=== PATIENT | female | born 1945 | race Caucasian/White ===

== ENCOUNTER 2019-03-26 09:29 | Emergency (ER) | payer MEDICARE, OTHER ==
[~2019-03-26] VITALS: Ht 162.6 cm; Wt 68.0 kg
[2019-03-26] MEDS ORDERED: BUSPIRONE5 MG PO (10:06)
[2019-03-26] MEDS ORDERED: DICYCLOMINE10 MG PO (10:06)
[2019-03-26 10:07] LABS: HEMATOCRIT 39.5 % (37.0-47.0); HEMOGLOBIN 12.9 g/dl (12.0-16.0); IMMATURE GRANULOCYTES 0.6 % (0.0-5.0); MEAN CELL VOLUME 98.5 fL CALC (80.0-100.0); MEAN CORPUSCULAR HGB 32.2 pG CALC (26.0-32.0); MEAN CORPUSCULAR HGB CONC 32.7 g/L CALC (32.0-36.0); NEUT# 2.3 thou/uL (2.00-7.15); RED BLOOD COUNT 4.01 mill/uL (4.20-5.60); RED CELL DISTRI WIDTH 13.1 % (11.5-15.5)
[2019-03-26] MEDS ORDERED: MAGNESIUM250 M1 PO (10:07)
[2019-03-26] MEDS ORDERED: PROBIOTI2 (10:07)
[2019-03-26] MEDS ORDERED: VIT B-COMPLX100 MG PO (10:08)
[2019-03-26] MEDS ORDERED: VITAMIN D PO (10:08)
[2019-03-26] MEDS ORDERED: L-THEANINE100 MG PO (10:08)
[2019-03-26] MEDS ORDERED: FISH OIL1000 MG PO (10:09)
[2019-03-26] MEDS ORDERED: ZINC50 M1 PO (10:09)
[2019-03-26] MEDS ORDERED: GAS RELIEF125 M2 PO (10:10)
[2019-03-26 10:21] LABS: ANION GAP 16 (6-22 (CALC)); BUN 11 mg/dL (8-23); BUN/CREATININE RATIO 18 (12-20 (CALC)); CARBON DIOXIDE 25 mmol/l (22-30); CHLORIDE 103 mmol/l (95-108); CREATININE 0.6 mg/dL (0.5-1.0); GFR > 60 ML/MIN (>=60 (CALC)); GFR FOR AFR.AMER. > 60 ML/MIN (>=60 (CALC)); POTASSIUM 3.9 mmol/l (3.5-5.1); SODIUM 140 mmol/l (137-146)
[2019-03-26 10:52] LABS: TSH, 3RD GENERATION 4.21 uIU/mL (0.47 - 4.68)
[2019-03-26 11:35] VITALS: BP 149/70
== END 2019-03-26 11:39 | disposition home or self-care (01) ==
LOC: ED 09:29
PROVIDERS: Family Medicine
DX: R00.2 Palpitations (principal); F41.9 Anxiety disorder, unspecified